=== PATIENT | male | born 1945 | race Caucasian/White ===

== ENCOUNTER → 2021-03-15 | Outpatient (CLI) | payer OTHER ==
[~2021-03-15] MED LIST: ALDACTONE50 MG PO; ASPIRIN81 M2 PO; CRESTOR10 MG PO; GABAPENTIN 100100 MG PO; GENTAMICIN OPH3.5 G1 OPHTHALMIC; LASIX 40 MG TAB40 M2 PO; LOSARTAN-HCTZ1 EACH PO; NOHOMEMEDICATIONS; ZETIA10 MG PO
== END ==
LOC: M.CT 13:10
PROVIDERS: ATTEND Family Medicine
DX: Z13.6 Encounter for screening for cardiovascular disorders (principal); I25.10 Atherosclerotic heart disease of native coronary artery without angina pectoris

== ENCOUNTER 2021-07-18 15:27 | Emergency (ER) | payer OTHER ==
[~2021-07-18] VITALS: Ht 185.4 cm; Wt 93.0 kg
[2021-07-18 16:07] LABS: ABSOLUTE EOSINOPHILS 0.5 thou/uL (0.0-0.7); ABSOLUTE MONOCYTES 1.1 thou/uL (0.0-1.2); ABSOLUTE NEUTROPHILS 5.7 thou/uL (1.6-8.1); BASOPHILS 0.3 %; EOSINOPHILS 4.4 %; HEMATOCRIT 45.6 % (42.0-52.0); HEMOGLOBIN 15.5 gm/dL (14.0-18.0); LYMPHOCYTES 28.9 %; MCH 31.8 pg (26.0-34.0); MCHC 34.1 g/dL (28.0-37.0); MCV 93.2 fL (80.0-100.0); MONOCYTES 10.8 %; MPV 7.8 fl. (7.2-11.1); NUCLEATED RBCS 0 /100WBC; PLATELET COUNT* 281 thou/uL (150-400); POLYS 55.6 %; RBC 4.89 mil/uL (4.50-6.00); RDW-CV 13.3 % (10.5-14.5); WBC 10.3 thou/uL (4.0-11.0)
[2021-07-18 16:15] LABS: CALCIUM 9.3 mg/dL (8.5-10.1); CREATININE 1.1 mg/dL (0.6-1.3); POTASSIUM 4.6 mmol/L (3.5-5.1)
[2021-07-18 16:19] LABS: ALBUMIN 3.9 g/dL (3.4-5.0); TOTAL BILIRUBIN 0.7 mg/dL (<0.1-1.0); TOTAL PROTEIN 7.8 g/dL (6.4-8.2)
--- NOTE | 2021-07-18 16:27 | EKG ---
[place] [address] ELECTROCARDIOGRAM REPORT Name: JOSE PERES Room: [facility]#: [id number] Admission: 07/18/21 Attend Phys: Discharge: Date of : 43 Date of Service: 07/18/21 1604 Report #: [id number] THIS REPORT FOR: //name// [facility] ED Test Date: 2021-07-18 Test Time: 16:04:36 Pat Name: JOSE PERES Department: Room: Gender: [employer]: [facility] : 1945 Requested By: Mika Curry Order Number: [id number] MD: Bert Peña Measurements Intervals [place] Rate: 72 P: 44 MS: 148 QRS: 10 QRSD: 100 T: 27 QT: 401 QTc: 439 Interpretive Statements Sinus rhythm Abnormal R-wave progression, early transition Compared to ECG 06/07/2016 12:26:40 no change Electronically Signed On 07-18-2021 16:26:58 [employer]EL[employer] by Bert Peña [email or web address] <ELECTRONICALLY SIGNED> By: Bert Peña MD, [facility] 07/18/21 1626 1604 1604 Bert Peña MD, [facility] /EPI
[2021-07-18 16:36] LABS: URINE BILIRUBIN NEGATIVE (Negative); URINE BLOOD NEGATIVE (Negative); URINE CLARITY CLEAR; URINE COLOR YELLOW; URINE GLUCOSE-RANDOM NEGATIVE (Negative); URINE KETONES NEGATIVE (Negative); URINE LEUKOCYTES NEGATIVE (Negative); URINE NITRITE NEGATIVE (Negative); URINE PROTEIN NEGATIVE (Negative); URINE SPECIFIC GRAVITY 1.015 (1.005-1.030); URINE UROBILINOGEN 0.2 E.U./dl (0.2-1.0)
[2021-07-18 17:58] VITALS: BP 167/89
== END 2021-07-18 18:02 | disposition home or self-care (01) ==
LOC: M.ERS 15:27
PROVIDERS: Physician Assistant
DX: I10 Essential (primary) hypertension (principal); R42 Dizziness and giddiness; Z79.899 Other long term (current) drug therapy; Z79.82 Long term (current) use of aspirin